=== PATIENT | female | born 1965 | race Caucasian/White ===

== ENCOUNTER 2016-08-17 08:33 | Emergency (ER) | payer OTHER ==
[2016-08-17] MEDS ORDERED: LIDOCAINE 1%-EPI 1:100000 20 ML MDV ONE (09:03)
[2016-08-17] MEDS ORDERED: TETANUS/DIPHTHERIA/PERTUSSIS 0.5 ML SYRINGE IM ONE ×2 (09:14)
[2016-08-17] MEDS ORDERED: BACITRACIN OINT TOP STA (09:24)
== END 2016-08-17 09:34 | disposition home or self-care (01) ==
DX: S71.111A Laceration without foreign body, right thigh, initial encounter (principal); W26.0XXA Contact with knife, initial encounter; Y93.89 Activity, other specified; Y92.009 Unspecified place in unspecified non-institutional (private) residence as the place of occurrence of the external cause; Z23 Encounter for immunization

== ENCOUNTER 2017-11-25 12:36 | Emergency (ER) | payer OTHER ==
[2017-11-25 12:48] VITALS: BP 132/72
--- NOTE | 2017-11-25 12:56 | ED Physician Documentation ---
PD HPI UPPER EXT INJURY - Stated complaint Stated Complaint: R HAND INJ - Chief complaint Chief Complaint: Ext Problem - History obtained from History obtained from: Patient - History of Present Illness Location: Right (Right-handed woman who was building a rock wall at Home and smashed her right middle finger between 2 rocks and has pain at the PIP and middle phalanx of the right middle finger. No other injuries.) Review of Systems Constitutional: reports: Reviewed and negative Cardiac: reports: Reviewed and negative Respiratory: reports: Reviewed and negative PD PAST MEDICAL HISTORY - Past Medical History Endocrine/Autoimmune: None - Past Surgical History Past Surgical History: No - Present Medications Home Medications: Ambulatory Orders Medication Instructions Recorded Confirmed No Known Home Medications [No 08/17/16 08/17/16 Known Home Medications] - Allergies Allergies/Adverse Reactions: Allergies Allergy/AdvReac Type Severity Reaction Status Date / Time Penicillins Allergy Rash Verified 08/17/16 08:39 - Social History Does the pt smoke?: No Smoking Status: Never smoker Does the pt drink ETOH?: Yes - Immunizations Immunizations are current?: No Immunizations: TDAP >10years/unknown PD ED PE NORMAL - Vitals Vital signs reviewed: Yes - General General: Alert and oriented X 3, No acute distress - Extremities Extremities: Other (RMF is swollen and TTP sergio around mid phalanx and PIP. Decent but not great ROM. NVI at the tip.) - Neuro Neuro: Alert and oriented X 3, Normal speech - Psych Psych: Normal mood, Normal affect Results - Vitals Vitals: Vital Signs - 24 hr 11/25/17 12:43 Temperature 36.3 C L Heart Rate 82 Respiratory 16 Rate Blood Pressure 132/72 H O2 Saturation 100 Oxygen O2 Source Room air - Rads (name of study) R 3rd finger Radiology: EMP read contemporaneously (No fracture) PD MEDICAL DECISION MAKING - Sepsis Event Vital Signs: Vital Signs - 24 hr 11/25/17 12:43 Temperature 36.3 C L Heart Rate 82 Respiratory 16 Rate Blood Pressure 132/72 H O2 Saturation 100 Oxygen O2 Source Room air Departure - Departure Disposition: 01 Home, Self Care Clinical Impression: Crushed finger Qualifiers: Encounter type: initial encounter Qualified Code(s): S67.10XA - Crushing injury of unspecified finger(s), initial encounter Condition: Good Record reviewed to determine appropriate education?: Yes Instructions: ED Crush Injury Finger No Fx Comments: Your blood pressure was elevated today on check into the emergency department. This does not mean that you have hypertension, it is a common phenomenon to come to the emergency department and have elevated blood pressure. I recommend that you see your primary care physician within the week to have it rechecked when you are feeling better. Discharge Date/Time: 11/25/17 13:40
--- NOTE | 2017-11-25 13:36 | XRAY Report ---
Procedure Date: 11/25/2017 Accession Number: [id number] / [id number] Procedure: XR - Finger(s) RT CPT Code: FULL RESULT: EXAM: RIGHT THIRD DIGIT RADIOGRAPHY EXAM DATE: 11/25/2017 01:21 PM. CLINICAL HISTORY: Right middle finger injury. COMPARISON: None. TECHNIQUE: 3 views. FINDINGS: Bones: Normal. No fracture or bone lesion. Joints: Normal. No subluxations. Soft Tissues: Within normal limits. IMPRESSION: Unremarkable right third digit radiographs. [facility]
== END 2017-11-25 13:40 | disposition home or self-care (01) ==
LOC: ED 12:36
DX: S67.192A Crushing injury of right middle finger, initial encounter (principal); W23.0XXA Caught, crushed, jammed, or pinched between moving objects, initial encounter; Y92.009 Unspecified place in unspecified non-institutional (private) residence as the place of occurrence of the external cause; R03.0 Elevated blood-pressure reading, without diagnosis of hypertension
CPT/HCPCS: 73140; 99283

== ENCOUNTER 2018-12-26 | Day surgery (SDC) | payer OTHER | END 2018-12-26 08:41 | disposition home or self-care (01) | PROC: 0DJD8ZZ Inspection of Lower Intestinal Tract, Via Natural or Artificial Opening Endoscopic (ICD-10-PCS; principal; 2018-12-26) | DX: Z12.11 Encounter for screening for malignant neoplasm of colon (principal); K64.8 Other hemorrhoids; Z87.891 Personal history of nicotine dependence | CPT/HCPCS: 45378; J3010; J7120 ==

== ENCOUNTER 2021-08-08 09:42 | Outpatient (CLI) | payer OTHER ==
--- NOTE | 2021-08-08 17:06 | MRI Report ---
PROCEDURE: Lumbar Spine W/O INDICATIONS: LOW BACK PAIN TECHNIQUE: Noncontrast sagittal T1 spin echo and T2 fast echo, sagittal STIR, axial T1 and T2 fast spin echo thr ough the lumbar spine. In cases with scoliosis, additional coronal T2 fast spin echo may be performe d. COMPARISON: None. FINDINGS: There is fairly diffuse abnormal low signal intensity of the bone marrow on T1-weighted images, appea ring lower than that of the intervertebral disks and paraspinous musculature. There is no focal discr ete mass or bone marrow edema. Prevertebral and paraspinous soft tissues are normal in appearance. Normal position appearance of the conus. No spinal canal or neural foraminal stenosis at any level. Disc desiccation and height loss at L4-L5 with diffuse disc bulge flattening the ventral thecal sac but producing no significant mass effect up on the traversing L5 nerve roots. IMPRESSION: Abnormally low bone marrow T1 signal intensity. This finding can be seen in the setting of red marrow reconversion due to chronic illness or cigarette use. A myeloproliferative disorder or other marrow infiltrative process cannot be strictly excluded. Reviewed by: Hair Villarreal MD on 08/08/2021 5:05 PM PDT Approved by: Hair Villarreal MD on 08/08/2021 5:05 PM PDT Station ID: [id number]
== END 2021-08-08 09:43 | disposition home or self-care (01) ==
LOC: DI 09:42
PROVIDERS: ATTEND Family Medicine
DX: M54.50 Low back pain, unspecified (principal); M54.16 Radiculopathy, lumbar region; R93.7 Abnormal findings on diagnostic imaging of other parts of musculoskeletal system

== ENCOUNTER 2023-11-23 09:30 | Outpatient (CLI) | payer OTHER ==
--- NOTE | 2023-11-23 21:07 | MRI Report ---
PROCEDURE: Lumbar Spine WO INDICATIONS: LUMBAR RADICULOPATHY TECHNIQUE: Noncontrast sagittal T1 spin echo and T2 fast echo, sagittal STIR, axial T1 and T2 fast spin echo thr ough the lumbar spine. In cases with scoliosis, additional coronal T2 fast spin echo may be performe d. COMPARISON: 08/08/2021. FINDINGS: Image quality: Excellent. Alignment and Curvature: There is normal bony alignment. Bone Marrow: Marrow is of normal overall signal. Low bone marrow signal may indicate presence of red marrow. No acute vertebral body compression fractures. Spinal Cord: Conus medullaris terminates at the L1-L2 level. Visualized cord demonstrates normal si gnal and size. Paraspinous Soft Tissues: No paravertebral masses. T12-L1: Normal in appearance. L1-L2: Normal in appearance. L2-L3: Normal in appearance. L3-L4: Minimal disc bulge. Facet hypertrophy. No canal stenosis or foraminal stenosis. Findings are unchanged L4-L5: Slight interval increase in disc height loss, moderate. Mild posterior disc bulge with minim al superimposed left paracentral disc protrusion. Facet hypertrophy. Borderline canal stenosis. No si gnificant foraminal stenosis. L5-S1: Disc bulge. Facet hypertrophy. No canal stenosis. Mild left foraminal stenosis. IMPRESSION: 1. Lower lumbar facet arthropathy. 2. Interval increase in disc height loss at L4-L5. 3. There is borderline canal stenosis at L4-L5. There is no canal stenosis at other levels. There is no significant foraminal stenosis. Reviewed by: Shakeel Eubanks MD on 11/23/2023 9:06 PM PDT Approved by: Shakeel Eubanks MD on 11/23/2023 9:06 PM PDT Station ID: [id number]
== END 2023-11-23 09:31 | disposition home or self-care (01) ==
LOC: DI 09:30
PROVIDERS: ATTEND Family Medicine
DX: M47.26 Other spondylosis with radiculopathy, lumbar region (principal); M47.27 Other spondylosis with radiculopathy, lumbosacral region; M51.16 Intervertebral disc disorders with radiculopathy, lumbar region; M51.17 Intervertebral disc disorders with radiculopathy, lumbosacral region; M48.061 Spinal stenosis, lumbar region without neurogenic claudication